=== PATIENT | male | born 2000 | race Caucasian/White ===

== ENCOUNTER 2023-11-19 22:58 | Observation (INO) | payer BC ==
[2023-11-19 23:06] VITALS: BMI 27.9
[2023-11-19] MEDS: ONDANSETRON 4 MG/2 ML VIAL IVPUSH ONE (23:41)
[2023-11-19] MEDS: ACETAMINOPHEN 1000 MG/100 ML BAG IVPB ONE (23:41)
[2023-11-19] MEDS: LACTATED RINGERS SOLUTION 1000 ML INFUS.BAG IV ONE (23:41)
[2023-11-19 23:45] LABS: URINE APPEARANCE CLOUDY; URINE BILIRUBIN NEGATIVE (NEGATIVE); URINE COLOR YELLOW; URINE GLUCOSE (UA) NEGATIVE (NEGATIVE); URINE KETONE TRACE (NEGATIVE); URINE LEUK ESTERASE NEGATIVE (NEGATIVE); URINE NITRITE NEGATIVE (NEGATIVE); URINE PROTEIN NEGATIVE (NEGATIVE)
[2023-11-19 23:50] LABS: BASO % 0.3 % (0-2.0); EOS % 1.6 % (0-4.5); HEMATOCRIT 44.7 % (35.4-49); HEMOGLOBIN 15.2 GM/dL (11.7-16.9); LYMPH % 35.1 % (8-40); MCH 29.4 pg (25.7-33.7); MEAN CELL VOLUME 86.5 fl (80-96); MEAN PLT VOLUME 7.8 fl (7.5-11.1); MONO % 6.8 % (3.8-10.2); NEUT % 56.2 % (42.8-82.8); PLATELET COUNT 283 10^3/uL (134-434); RBC 5.17 M/mm3 (4.00-5.60); WHITE BLOOD COUNT 10.1 K/mm3 (4.0-10.0)
[2023-11-19 23:52] LABS: INR 0.99 (0.83-1.09); PROTHROMBIN TIME (PATIENT) 11.2 SEC (9.7-13.0)
[2023-11-19 23:54] LABS: ACTIVATED PTT 33.4 SECONDS (25.2-36.5)
[2023-11-20 00:07] LABS: ALBUMIN 4.2 g/dl (3.4-5.0); BLOOD UREA NITROGEN 17.1 mg/dL (7-18); CALCIUM 8.6 mg/dL (8.5-10.1)
[2023-11-20 00:10] LABS: CREATININE 1.4 mg/dL (0.55-1.3)
[2023-11-20 00:12] LABS: BILIRUBIN,TOTAL 0.4 mg/dL (0.2-1); TOT PROT 7.1 g/dl (6.4-8.2)
[2023-11-20] MEDS ORDERED: morphine SULFATE 4 MG/ML VIAL ONE (01:29)
[2023-11-20] MEDS: LACTATED RINGERS SOLUTION 1,000 ML/1,000 ML INFUS.BAG IV SCH ×4 (01:37→18:59)
[2023-11-20] MEDS: morphine SULFATE 4 MG/ML VIAL IVPUSH ONE (01:37)
[2023-11-20] MEDS ORDERED: ONDANSETRON 4 MG/2 ML VIAL IVPUSH PRN (01:49)
[2023-11-20] MEDS: ACETAMINOPHEN 1000 MG/100 ML BAG IVPB PRN (03:59)
[2023-11-20 09:29] VITALS: BP 112/56
[2023-11-20 12:57] LABS: BASO % 0.3 % (0-2.0); EOS % 1.7 % (0-4.5); HEMATOCRIT 42.8 % (35.4-49); HEMOGLOBIN 14.9 GM/dL (11.7-16.9); LYMPH % 29.5 % (8-40); MCH 29.7 pg (25.7-33.7); MCHC 34.8 g/dl (32.0-35.9); MEAN CELL VOLUME 85.3 fl (80-96); MEAN PLT VOLUME 7.8 fl (7.5-11.1); MONO % 6.4 % (3.8-10.2); NEUT % 62.1 % (42.8-82.8); PLATELET COUNT 248 10^3/uL (134-434); RBC 5.02 M/mm3 (4.00-5.60); RDW 12.6 % (11.9-15.9); WHITE BLOOD COUNT 7.5 K/mm3 (4.0-10.0)
[2023-11-20 19:43] VITALS: PULSE 66; RESP 18; TEMP 97.2
== END 2023-11-20 20:19 | disposition home or self-care (01) ==
LOC: JER 22:58 → UNDOADMOB 11-20 01:31 → JERBED 11-20 01:31 → INTOOBSV 11-20 01:48 → OBSVTOIN 11-20 01:48 → JERBED 11-20 03:44 → J8W 11-20 03:44 → JERBED 11-20 14:18
PROVIDERS: ADMIT Internal Medicine; ATTEND Internal Medicine
PROC: 3E033NZ Introduction of Analgesics, Hypnotics, Sedatives into Peripheral Vein, Percutaneous Approach (ICD-10-PCS; principal; 2023-11-20)
PROC: 3E033GC Introduction of Other Therapeutic Substance into Peripheral Vein, Percutaneous Approach (ICD-10-PCS; 2023-11-20)
DX: R10.31 Right lower quadrant pain (principal); D72.829 Elevated white blood cell count, unspecified; R11.0 Nausea
CPT/HCPCS: 36415; 74176-TC; 74177-TC; 80053; 81003; 83690; 85025; 85610; 85730; 86850; 86900; 86901; 87086; 93005; 93010; 96361; 96374; 96375; 96376; 99285-25; G0378; J0131; Q9967